=== PATIENT | female | born 1995 | race Hispanic/Latino ===

== ENCOUNTER 2019-01-16 18:02 | Observation (INO) | payer OTHER ==
[2019-01-16 18:38] VITALS: BMI 37.8
--- NOTE | 2019-01-16 18:55 | PDOC.LDHP ---
Labor and Delivery H&P Chief complaint: other (N/V at 32 weeks 5 days) HPI: Patinet of Dr Camarillo seen earlier today with Dr Myers for persitent N/V HPI: 23 yo at 32 weeks 5 days with N/V x 1 day. Flu swab was negative as outpatient. She was given zofran but still feels bad. Temp in triage was 102.4. No CTX, no LOF, no VB, no SOB Review of Systems: complete ROS completed and as per HPI Current gestational age (weeks): 32 (5 days) Dating criteria: last menstrual period Grav: 2 Para: 1 OB History Details: CS X 1 Current complications: none Abnormal US findings: No Past Medical History: Asthma Current medications: other (Given tamiflu today emperically although flu swab was negative) Previous surgical history: other (wrist surgery; adenoids) Allergies/Adverse Reactions: Allergies Allergy/AdvReac Type Severity Reaction Status Date / Time No Known Drug Allergies Allergy Verified 01/16/19 18:38 - Physical Exam Abnormal vital signs: T 102.4 99/65 Pulse 123 General: NAD Heart: RRR Lungs: CTAB Abdomen: gravid Extremeties: no edema FHT: category 1 [place] contractions every: none - Assessment Fever NOS at 32 weeks, workup in progress...flu swab negative as outpatient today - Plan Plan: observation in L&D (we will: 1. IV hydrate 2. Check CBC and CMP, 3. Check urine analysis by cath, 4. Order BPP, 5. check RUQ sono)
[2019-01-16] MEDS ORDERED: Lactated Ringer's 1,000 ML IV SCH (19:00)
[2019-01-16] MEDS ORDERED: Promethazine 25 MG TAB PO PRN (19:11)
--- NOTE | 2019-01-16 19:14 | PDOC.EVN ---
Event Note - Event Note Event Note: 1914: Patient has been seen and examined by me in triage A She is very flush on her checks and FHTs are now 189-190s due to fever. I checked her CX: - I will continue with IVFs LR I will recheck Flu swab here I will give tylenol prn I will keep in observation overnight Sono tech in room now Dr Alberto aware and he will check on her in AM, I will monitor in L&D overnight
[2019-01-16] MEDS: Acetaminophen 500 MG TAB PO PRN (19:28)
[2019-01-16 19:40] LABS: #Basophils 0.1 thou/uL (0.0-0.2); #Eosinphils 0.1 thou/uL (0.0-0.7); #Lymphocytes 1.1 thou/uL (1.20-3.40); #Monocytes 1.3 thou/uL (0.11-0.59); #Neutrophils 8.2 thou/uL (1.40-6.50); %Basophils 0.6 % (0.0-1.0); %Eosinophils 0.6 % (0.0-10.0); %Lymphocytes 10.5 % (21.0-51.0); %Monocytes 11.7 % (0.0-10.0); %Neutrophils 76.6 % (42.0-75.0); Hemoglobin 10.6 g/dL (12.0-16.0); Mean Corpuscular HGB CONC 32.5 g/dL (32.0-36.0); Mean Corpuscular Hemoglobin 25.2 pg (27.0-31.0); Mean Corpuscular Volume 77.3 fL (78.0-98.0); Mean Platelet Volume 7.7 fL (7.4-10.4); Platelet Count 284 thou/uL (130-400); RBC Distribution Width 15.6 % (11.5-14.5); Red Blood Cell (RBC) Count 4.21 mill/uL (4.20-5.40); White Blood Cell (WBC) Count 10.7 thou/uL (4.8-10.8)
--- NOTE | 2019-01-16 19:51 | ULT ---
BIOPHYSICAL PROFILE: 01/16/19 INDICATIONS: Fever with decreased movement. tone: 2 breathin movement: 2 Amniotic fluid: 2 Total score: 8/8. MOSES: 17.8 cm. heart rate: 168. POS: [facility]
[2019-01-16 20:02] LABS: ALT (SGPT) 13 U/L (8-55); AST (SGOT) 21 U/L (5-34); Albumin 3.4 g/dL (3.5-5.0); Alkaline Phosphatase 188 U/L (40-150); Anion Gap 14 mmol/L (10-20); BUN (Urea Nitrogen) Less than 4 mg/dL (7.0-18.7); Bilirubin, Total 0.4 mg/dL (0.2-1.2); Calc. Creatinine Clearance 257 mL/min (70-130); Calcium 8.8 mg/dL (7.8-10.44); Carbon Dioxide 19 mmol/L (22-29); Chloride 106 mmol/L (98-107); Estimated GFR-MDRD Greater than 90; Globulin 3.4 g/dL (2.4-3.5); Glucose 84 mg/dL (70-105); Potassium 3.9 mmol/L (3.5-5.1); Protein, Total 6.8 g/dL (6.0-8.3); Sodium 135 mmol/L (136-145)
[2019-01-16 20:04] LABS: Bilirubin Negative (Negative); Blood, Urine Negative (Negative); Clarity CLEAR (Clear); Glucose, Urine (Dipstick) Negative (Negative); Leukocyte Negative (Negative); Nitrite Negative (Negative); Protein, Urine (Dipstick) Negative (Neg-Trace); Specific Gravity, Urine 1.006 (1.002-1.036); Urobilinogen 0.2 mg/dL (0.2-1.0); pH, Urine 7.5 (5.0-9.0)
[2019-01-16 20:06] LABS: Bacteria/HPF None Seen HPF (None Seen); Hyaline Casts/LPF 0-3 HYALINE CAST LPF (0-3 Hyaline); Pathc Cast-AUWi Flag 0.14 (0-2.49); RBC/HPF 0-3 HPF (0-3); Squamous Epithelial 0-3 HPF (0-3); WBC/HPF None Seen HPF (0-3)
[2019-01-16 20:08] LABS: Urine Culture Reflex No No
--- NOTE | 2019-01-16 20:13 | ULT ---
GALLBLADDER ULTRASOUND: 01/16/19 INDICATIONS: Nausea, vomiting, right upper quadrant pain. Images of the gallbladder reveal numerous small echogenic gallstones layering dependently in the gall bladder. Common bile duct is normal caliber. Gallbladder wall thickness is normal. The liver is unrem arkable. The pancreas is obscured. The right kidney is unremarkable. IMPRESSION: Cholelithiasis. POS: [facility]
--- NOTE | 2019-01-16 20:13 | PDOC.EVN ---
Event Note - Event Note Event Note: Patient with RUQ sono with gallstones BPP 06/27 Labs ok Urine OK Flu swab pending
[2019-01-16] MEDS: Lactated Ringer's 1,000 ML IV SCH (20:25)
--- NOTE | 2019-01-16 20:55 | PDOC.EVN ---
Event Note - Event Note Event Note: Flu swab neg DX is either nonspecific viral syndrome vs IAI. I do not suspect IAI at this time as [place] nontender Follow for now
[2019-01-17] MEDS: Acetaminophen 500 MG TAB PO PRN ×3 (02:28→15:37)
[2019-01-17] MEDS: Lactated Ringer's 1,000 ML IV SCH ×2 (03:49→12:09)
[2019-01-17] MEDS: Loperamide HCl 2 MG CAP PO PRN ×2 (08:49→18:13)
[2019-01-17] MEDS ORDERED: Loperamide HCl 2 MG CAP PO SCH (18:15)
[2019-01-17 18:26] VITALS: BP 115/68; TEMP 98.8
== END 2019-01-17 18:45 | disposition home or self-care (01) ==
LOC: L&D/OP 18:02 → L&D 23:06
PROVIDERS: ADMIT Obstetrics & Gynecology; ATTEND Obstetrics & Gynecology
DX: O99.613 Diseases of the digestive system complicating pregnancy, third trimester (principal); A08.4 Viral intestinal infection, unspecified; O76 Abnormality in fetal heart rate and rhythm complicating labor and delivery; O99.89 Other specified diseases and conditions complicating pregnancy, childbirth and the puerperium; E86.0 Dehydration; Z3A.32 32 weeks gestation of pregnancy
CPT/HCPCS: 36415; 59025; 76705; 76819; 80053; 81001; 85025; 87804; 96360; 96361; 99285; G0378

== ENCOUNTER 2019-02-14 10:57 | Inpatient (IN) | payer OTHER ==
[~2019-02-14 10:57] MED LIST: Ketorolac Tromethamine 30 MG/ML VIAL ONE; Ondansetron PF 4 MG/2 ML Vial ONE; PHENYLEPHRINE-NS 100 MCG/ML 10 ML SYRINGE ONE
[2019-02-14] MEDS ORDERED: Ondansetron PF 4 MG/2 ML Vial IVP PRN ×3 (11:21→20:00)
[2019-02-14] MEDS ORDERED: Docusate 100 MG CAP PO PRN (11:21)
[2019-02-14] MEDS ORDERED: Promethazine HCl 25 MG/ML VIAL IM PRN ×2 (11:21→17:35)
[2019-02-14] MEDS ORDERED: Bicitra 30 ML UDCUP PO SCH (11:30)
[2019-02-14] MEDS ORDERED: CEFAZOLIN 2 GM in Premix Bag 1 BAG IVPB SCH (11:30)
[2019-02-14 12:27] LABS: Hemoglobin 10.9 g/dL (12.0-16.0); Mean Corpuscular HGB CONC 33.1 g/dL (32.0-36.0); Mean Corpuscular Hemoglobin 25.2 pg (27.0-31.0); Mean Corpuscular Volume 76.2 fL (78.0-98.0); Mean Platelet Volume 8.1 fL (7.4-10.4); Platelet Count 291 thou/uL (130-400); Red Blood Cell (RBC) Count 4.32 mill/uL (4.20-5.40); White Blood Cell (WBC) Count 10.1 thou/uL (4.8-10.8)
[2019-02-14 12:38] VITALS: BMI 39.0
[2019-02-14 13:06] LABS: HBSAg Index 0.32 S/CO (0-0.99); Hep B Surf Ag Non-Reactive S/CO (NonReactive)
[2019-02-14 13:07] LABS: Syphilis Antibody Nonreactive (Nonreactive); Syphilis Antibody Index 0.05 S/CO (<1.00 Non-Reactive)
[2019-02-14] MEDS ORDERED: Fentanyl 100 MCG/2 ML VIAL ONE (17:20)
[2019-02-14] MEDS ORDERED: Oxytocin 10 UNITS/ML VIAL ONE ×2 (17:20→18:02)
[2019-02-14] MEDS ORDERED: MORPHINE 5 MG/10 ML PF VIAL ONE (17:20)
[2019-02-14] MEDS ORDERED: HYDROmorphone 2 MG/ML VIAL SLOW IVP PRN (17:34)
[2019-02-14] MEDS ORDERED: Meperidine HCl/PF 25 MG/ML VIAL SLOW IVP PRN (17:34)
[2019-02-14] MEDS ORDERED: L&D-Morphine 4 MG/ML VIAL SLOW IVP PRN (17:34)
[2019-02-14] MEDS ORDERED: Ondansetron HCl/PF 4 MG/2 ML Vial IVP PRN (17:34)
[2019-02-14] MEDS ORDERED: Naloxone HCl 0.4 mg/ml Vial IVP PRN ×2 (17:35)
[2019-02-14] MEDS ORDERED: Eucerin (Mineral Oil/Petrolatum,White) 30 gm Jar TOP PRN (17:35)
[2019-02-14] MEDS ORDERED: Promethazine HCl 25 MG SUPP PR PRN (17:35)
[2019-02-14] MEDS ORDERED: Ketorolac Tromethamine 30 MG/ML VIAL IVP PRN (17:35)
[2019-02-14] MEDS ORDERED: diphenhydrAMINE 50 MG/ML VIAL IVP PRN (17:35)
[2019-02-14] MEDS ORDERED: Naloxone HCl 0.4 mg/ml Vial IV PRN (17:35)
[2019-02-14] MEDS ORDERED: Ketorolac Tromethamine 30 MG/ML VIAL ONE (17:42)
[2019-02-14] MEDS ORDERED: Communication Order-Pharmacy FS SCH (17:45)
[2019-02-14] MEDS ORDERED: Ketorolac Tromethamine 30 MG/ML VIAL IVP SCH (17:45)
[2019-02-14] MEDS ORDERED: NS / Oxytocin 40 units/1000ml 1,000 ML ONE (19:57)
[2019-02-14] MEDS ORDERED: Zolpidem Tartrate 5 MG TAB PO PRN (20:00)
[2019-02-14] MEDS ORDERED: Bisacodyl 10 MG SUPP PR PRN (20:00)
[2019-02-14] MEDS ORDERED: diphenhydrAMINE 25 MG CAP PO PRN (20:00)
[2019-02-14] MEDS ORDERED: Lanolin Ointment 7 GM TUBE TOP PRN (20:00)
[2019-02-14] MEDS ORDERED: Lactated Ringer's 1,000 ML IV SCH (20:00)
[2019-02-14] MEDS ORDERED: Acetaminophen 325 MG TAB PO PRN (20:00)
[2019-02-14] MEDS ORDERED: NS / Oxytocin 40 units/1000ml 1,000 ML IV SCH (20:00)
[2019-02-14] MEDS: Lactated Ringer's 1,000 ML IV SCH (20:03)
[2019-02-14] MEDS ORDERED: Ferrous Sulfate 325 MG TAB PO SCH (20:30)
[2019-02-14] MEDS: Docusate Calcium (SURFAK) 240 MG CAP PO SCH (23:21)
[2019-02-15] MEDS ORDERED: Acetaminophen 1,000 MG in Premix Bag 1 BAG IVPB PRN
[2019-02-15] MEDS ORDERED: Ketorolac Tromethamine 30 MG/ML VIAL IVP PRN (02:00)
[2019-02-15] MEDS ORDERED: Ketorolac Tromethamine 30 MG/ML VIAL IVP SCH (02:00)
[2019-02-15] MEDS ORDERED: Meperidine HCl/PF 25 MG/ML VIAL IM PRN (05:45)
[2019-02-15 06:57] LABS: Hemoglobin 10.8 g/dL (12.0-16.0); Mean Corpuscular HGB CONC 32.5 g/dL (32.0-36.0); Mean Corpuscular Hemoglobin 25.1 pg (27.0-31.0); Mean Corpuscular Volume 77.1 fL (78.0-98.0); Mean Platelet Volume 8.1 fL (7.4-10.4); Platelet Count 219 thou/uL (130-400); White Blood Cell (WBC) Count 11.1 thou/uL (4.8-10.8)
[2019-02-15] MEDS ORDERED: Adacel (T-DAP) 0.5 ML SYRINGE IM ONE (09:00)
[2019-02-15] MEDS: Docusate Calcium (SURFAK) 240 MG CAP PO SCH ×2 (09:14→22:15)
[2019-02-15] MEDS: HYDROcodone/Acetaminophen 5/325 mg Tablet PO PRN ×3 (09:14→17:32)
[2019-02-15] MEDS: Prenatal Vitamin 1 TAB PO SCH (09:14)
[2019-02-15] MEDS: Simethicone Chewable 80 MG TAB PO PRN ×2 (09:16→17:31)
--- NOTE | 2019-02-15 09:52 | OP ---
DATE OF PROCEDURE: 02/14/2019 RESIDENT SURGEON: Patria Shea MD AUTOMOTIVE PROJECT ENGINEER SURGEON: Daphne Gomez MD PREOPERATIVE DIAGNOSES: 1. Term intrauterine at 37 weeks. 2. Spontaneous rupture of membranes (PSROM). 3. Prior section. 4. Declines trial of labor. POSTOPERATIVE DIAGNOSES: 1. Term intrauterine at 37 weeks. 2. Spontaneous rupture of membranes (PSROM). 3. Prior section. 4. Declines trial of labor. PROCEDURE PERFORMED: Repeat low-transverse section. ANESTHESIA: Spinal catheterization. FINDINGS: 1. SROM at 37 weeks confirmed by pooling and Nitrazine. 2. Vigorous male , 8 pounds and 9 ounces, Apgars 8 and 9. 3. Normal uterus, tubes, and ovaries. 4. Minimal scarring and adhesions secondary to previous adhesion prevention measures. COMPLICATIONS: None. SPECIMENS REMOVED: Cord blood. ESTIMATED BLOOD LOSS: Approximately 500 mL (QBL 473 mL). HISTORY/INDICATIONS: Ms. Jazmin Bowen is a very pleasant 23-year-old female, 2, para 1-0-0-1, who is followed in my clinic for obstetric care. Jazmin presented to the office on the morning of 02/14/2019, with complaints of leaking fluid. She was examined and ruptured membranes was confirmed by pooling and Nitrazine. She was sent to Labor and Delivery for monitoring and scheduled repeat . The patient has been thoroughly counseled and consented and surgical disclosure has been signed and placed in the chart. She declines trial of labor. Questions answered to her satisfaction. DESCRIPTION OF PROCEDURE: After thorough consent and counseling, Ms. Bowen was taken to operating room and adequate level of anesthesia was obtained via spinal catheterization. The patient was prepped and draped in usual fashion for abdominal surgery. A Arteaga was placed in the bladder, which was draining clear urine. Attention was then turned to performing the repeat low-transverse section (LTCS). A Pfannenstiel incision was made and the old scar was excised. The incision was carried sharply to the fascia, which was also sharply incised. The midline was identified and the rectus muscles were retracted laterally. The abdominal peritoneal cavity was entered with usual safeguards carried out. A retractor was placed and a bladder flap was created on the vesicouterine peritoneum. A bladder blade was then placed. A low-transverse incision was made on the well-developed lower uterine segment. Upon entering the amniotic sac, copious amount of clear amniotic fluid was visualized. The was vertex presentation in the occiput anterior position still high in the pelvis. Head was delivered and baby was bulb suctioned on the abdomen. Nuchal cord x1 was reduced. Shoulders and body were then delivered in an atraumatic fashion. The cord was doubly clamped and cut and the was handed to the Neonatology Team in attendance for delivery. The was a vigorous viable male weighing 8 pounds and 9 ounces with Apgars of 8 and 9 obtained at one and five minutes respectively. Cord blood was obtained. The placenta was manually removed from the uterus. The uterus was exteriorized and good tone was noted. The uterine cavity was cleared of any remaining clot and fluid. The low-transverse incision was closed with a running locking ligature of #1 chromic. A second imbricating layer was placed to facilitate strength and hemostasis. The vesicouterine peritoneum was then reapproximated to the lower segment with a running ligature of 3-0 Monocryl suture. Good tone and hemostasis were appreciated. The uterus, fallopian tubes, and ovaries were completely normal in appearance. There was no adhesions or pathology identified. The posterior cul-de-sac and gutters were cleared of clot and fluid. Seprafilm was applied to the low-transverse incision and to the anterior aspect of the uterus for adhesion prevention. The uterus was returned to the abdomen and good tone and hemostasis were appreciated. Lap, sponge, and needle counts were correct. Peritoneal closure with 2-0 Vicryl. Rectus muscle reapproximation with 2-0 Vicryl and #1 chromic. Fascia closure with 2 ligatures of 0 Vicryl tied in the midline. The incision was irrigated with copious amount of warm normal saline. The subcutaneous tissue was closed with multiple interrupted ligatures of 2-0 plain suture. The skin was then closed with subcuticular stitch of 4-0 Monocryl and dressed with Dermabond. A pressure dressing and ice packs were subsequently placed. Lap, sponge, and needle counts were correct x3. The estimated blood loss was approximately 500 mL. QBL postoperatively was 473 mL. The patient was taken to the recovery room in good condition. Immediately following surgery, the patient and family were made aware of the surgical procedure and operative findings. Questions answered to their satisfaction. Job ID: [id number]
[2019-02-15] MEDS: Ferrous Sulfate 325 MG TAB PO SCH ×2 (11:18→17:31)
[2019-02-15] MEDS: Ibuprofen 800 MG TAB PO SCH ×2 (14:43→22:15)
[2019-02-16] MEDS: Ibuprofen 800 MG TAB PO SCH ×3 (05:18→21:50)
[2019-02-16] MEDS: Prenatal Vitamin 1 TAB PO SCH (09:34)
[2019-02-16] MEDS: Docusate Calcium (SURFAK) 240 MG CAP PO SCH ×2 (09:34→21:49)
[2019-02-16] MEDS: Ferrous Sulfate 325 MG TAB PO SCH ×2 (09:34→17:03)
[2019-02-16] MEDS: Simethicone Chewable 80 MG TAB PO PRN ×2 (09:34→15:26)
[2019-02-16] MEDS: HYDROcodone/Acetaminophen 5/325 mg Tablet PO PRN ×2 (15:21→21:50)
[2019-02-17] MEDS: Ibuprofen 800 MG TAB PO SCH (05:25)
[2019-02-17 08:56] VITALS: BP 123/63; TEMP 97.6
[2019-02-17] MEDS: Ferrous Sulfate 325 MG TAB PO SCH (09:27)
[2019-02-17] MEDS: Lactated Ringer's 1,000 ML IV SCH (09:28)
[2019-02-17] MEDS: Prenatal Vitamin 1 TAB PO SCH (10:08)
[2019-02-17] MEDS: Simethicone Chewable 80 MG TAB PO PRN (10:08)
[2019-02-17] MEDS: Docusate Calcium (SURFAK) 240 MG CAP PO SCH (10:08)
[2019-02-20] MEDS ORDERED: Ibuprofen 800 MG TAB PO SCH (14:00)
== END 2019-02-17 10:15 | disposition home or self-care (01) | DRG 788 ==
LOC: L&D/OP 10:57 → L&D 12:52 → 3SW 20:53
PROVIDERS: ADMIT Obstetrics & Gynecology; ATTEND Obstetrics & Gynecology
PROC: 10D00Z1 Extraction of Products of Conception, Low, Open Approach (ICD-10-PCS; principal; 2019-02-14)
DX: O34.211 Maternal care for low transverse scar from previous cesarean delivery (principal); O69.81X0 Labor and delivery complicated by cord around neck, without compression, not applicable or unspecified; Z37.0 Single live birth; Z3A.37 37 weeks gestation of pregnancy; O99.02 Anemia complicating childbirth; D64.9 Anemia, unspecified; N85.8 Other specified noninflammatory disorders of uterus
CPT/HCPCS: 36415; 51702; 85027; 86780; 86850; 86900; 86901; 87340; J0131; J1885; J2270; J2550; J2590; J3010